=== PATIENT | female | born 1975 | race Caucasian/White ===

== ENCOUNTER 2017-09-22 16:21 | Emergency (ER) | payer BC, SELFPAY ==
[2017-09-22 18:30] LABS: Absolute Lymphocytes (CBC) 1.9 K/uL (0.7-4.9); Absolute Monocytes 0.8 K/uL (0.1-1.3); Absolute Neutrophil 10.2 K/uL (1.8-8.0); Basophils % 0.6 % (0-1.3); Eosinophils % 1.1 % (0-4.4); Hematocrit 39.9 % (36.0-45.0); Lymphocytes % 14.5 % (15.3-44.8); MCH 30.8 pg (27.0-35.0); MCV 90.6 fL (80-100); MPV 7.2 fL (7.6-11.3); Monocytes % 6.3 % (3.3-12.3)
[2017-09-22 19:14] LABS: Potassium 3.9 mEq/L (3.6-5.0)
[2017-09-22] MEDS ORDERED: HYDROCODONE/APAP 7.5/325 MG TAB ONE (19:27)
--- NOTE | 2017-09-22 19:58 | RAD REPORT ---
EXAM DESCRIPTION: CT - Head C Spine Cap W Con - 09/22/2017 7:40 pm COMPARISON: None. TECHNIQUE: Axial [address] head images were obtained. Axial [address] cervical spine images were obtaine d with sagittal and coronal reconstruction images reviewed. During dynamic enhancement of 100mL non-i onic contrast, axial 5 mm images of the chest, abdomen and pelvis were obtained. All CT scans are performed using dose optimization technique as appropriate and may include automated exposure control or mA/KV adjustment according to patient size. FINDINGS: No intracranial hemorrhage, mass or edema. No midline shift or abnormal fluid collection. Mastoid air cells and paranasal sinuses are clear. No skull fracture. CT cervical spine imaging shows normal height. Normal alignment of the vertebrae. Mild disc space karo rowing changes seen at C4-5 and C5-6. Moderate C6-7 disc space narrowing. There is posterior endplate spurring from C4-C7. Disc bulge and endplate spurring changes at C6-7 cause central spinal stenosis. No bony foraminal stenosis on the left at C6-7. No paraspinal mass or hematoma seen. Central canal d etail is inherently limited. Concerns for traumatic disc herniation or traumatic cord injury can be f urther addressed with MR imaging. CT chest shows no pneumothorax, pulmonary contusion or pleural fluid collection. No mediastinal hemat jon and the aorta and pulmonary arteries are unremarkable. No chest will mass or abnormal axillary fi nding. No displaced rib fracture or other significant bony finding. CT abdomen and pelvis show no injury to solid abdominal viscera. Gallbladder and biliary tree are unr emarkable. No bowel injury or significant finding. No free air, free fluid or abnormal stranding. No urinary bladder abnormality. No significant chest, abdomen or pelvis bony abnormality. IMPRESSION: No hemorrhage, edema or acute CT Head finding. No fracture or acute cervical spine finding. Spinal stenosis is likely at C6-7 from endplate spurring and disc bulge. There is significant left foraminal stenosis at this level. No significant CT Chest finding. No significant CT Abdomen and Pelvis finding.
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
--- NOTE | 2017-09-23 06:06 | EKG ---
Test Date: 2017-09-22 Test Time: 17:04:06 Hardness Inspector: SOFI MEASUREMENT RESULTS: Intervals: Rate: 101 OR: 120 QRSD: 90 QT: 350 QTc: 453 [place]: P: 51 OR: 120 QRS: 42 T: 61 INTERPRETIVE STATEMENTS: Sinus tachycardia Cannot rule out Anterior infarct, age undetermined Abnormal ECG No previous ECG available for comparison Electronically Signed On 09-23-17 06:05:26 CDT by Cooper Nino
== END 2017-09-22 20:22 | disposition home or self-care (01) ==
LOC: ER 16:21
DX: S20.219A Contusion of unspecified front wall of thorax, initial encounter (principal); V59.49XA Driver of pick-up truck or van injured in collision with other motor vehicles in traffic accident, initial encounter; Z72.0 Tobacco use
CPT/HCPCS: 36415; 70450; 71260; 72125; 74177; 80048; 85025; 86850; 86900; 86901; 93005; 99285; Q9967